=== PATIENT | female | born 2000 | race Caucasian/White ===

== ENCOUNTER 2025-02-27 17:25 | Inpatient (IN) | payer OTHER ==
[~2025-02-27] VITALS: Ht 162.6 cm; Wt 77.3 kg
[2025-02-27 18:17] LABS: PLATELET COUNT (AUTO) 321 K/uL (150-450); RED BLOOD CELL COUNT(AUTO) 3.88 MIL/uL (4.00-5.20); RED CELL DISTRIBUTION WIDTH 14.4 % (11.5-14.5); WHITE BLOOD COUNT (AUTO) 7.2 K/uL (4.5-11.0)
[2025-02-27 18:25] LABS: CALCIUM, TOTAL 9.2 mg/dL (8.8-10.5); CREATININE 0.56 mg/dL (0.60-1.30); GLOMERULAR FILTR. RATE CALC > 60 mL/min (>60); GLUCOSE,RANDOM 108 mg/dL (70-110); SODIUM SERUM 141 mmol/L (136-145); UREA NITROGEN, BLOOD 6 mg/dL (7-18)
[2025-02-27 22:25] VITALS: BP 99/59; PULSE 69; RESP 18; TEMP 98.2; O2SAT 99
[2025-02-27] MEDS ORDERED: LORazepam 2 MG/ML VIAL IVP PRN (22:45)
[2025-02-27] MEDS ORDERED: LOPERAMIDE HCL 2 MG CAPSULE PO PRN (22:45)
[2025-02-27] MEDS ORDERED: BISACODYL 10 MG RECTAL RECTAL SUPPOSITORY PR PRN (22:45)
[2025-02-27] MEDS ORDERED: ACETAMINOPHEN 325 MG TABLET PO PRN (22:45)
[2025-02-27] MEDS ORDERED: DICYCLOMINE HCL 10 MG CAPSULE PO PRN (22:45)
[2025-02-27] MEDS ORDERED: ONDANSETRON HCL 4 MG/2 ML VIAL IVP PRN (22:45)
[2025-02-27] MEDS ORDERED: MAGNESIUM HYDROXIDE SUSPENSION 30 ML UDCUP PO PRN (22:45)
[2025-02-27] MEDS: SODIUM CHLORIDE 0.9% 1,000 ML IV ONE (22:45)
[2025-02-27] MEDS ORDERED: METOCLOPRAMIDE HCL 5 MG/ML 2 ML VIAL IVP PRN (22:45)
[2025-02-27] MEDS: ZOLPIDEM TARTRATE 5 MG TABLET PO PRN (23:32)
[2025-02-27] MEDS: HEPARIN SODIUM,PORCINE 5,000 UNITS/ML VIAL SQ SCH (23:33)
[2025-02-28 05:08] VITALS: BP 117/87; PULSE 73; RESP 18; TEMP 98.4; O2SAT 99
[2025-02-28 06:50] LABS: PLATELET COUNT (AUTO) 304 K/uL (150-450); RED BLOOD CELL COUNT(AUTO) 3.78 MIL/uL (4.00-5.20); RED CELL DISTRIBUTION WIDTH 14.4 % (11.5-14.5); WHITE BLOOD COUNT (AUTO) 6.1 K/uL (4.5-11.0)
[2025-02-28 06:52] LABS: APPEARANCE,URINE CLEAR (CLEAR); GLUCOSE, URINE (UA) NEGATIVE (NEGATIVE); LEUKOCYTE ESTERASE ,URINE NEGATIVE (NEGATIVE); NITRATE,URINE NEGATIVE (NEGATIVE); OCCULT BLOOD,URINE NEGATIVE (NEGATIVE); PH,URINE DRUG SCREEN 7.0 (5.0-8.0); SPECIFIC GRAVITIY, URINE 1.023 (1.003-1.030)
[2025-02-28 06:54] LABS: ALCOHOL, URINE DRUG SCREEN NEGATIVE (NEGATIVE); AMPHET/METH SCREEN,URINE NEGATIVE (NEGATIVE); BARBITURATE SCREEN, URINE NEGATIVE (NEGATIVE); CANNABINOID SCREEN,URINE NEGATIVE (NEGATIVE); COCAINE SCREEN,URINE NEGATIVE (NEGATIVE); METHADONE SCREEN, URINE NEGATIVE (NEGATIVE)
[2025-02-28 07:03] LABS: CALCIUM, TOTAL 8.8 mg/dL (8.8-10.5); CREATININE 0.65 mg/dL (0.60-1.30); GLOMERULAR FILTR. RATE CALC > 60 mL/min (>60); GLUCOSE,RANDOM 123 mg/dL (70-110); SODIUM SERUM 139 mmol/L (136-145); UREA NITROGEN, BLOOD 10 mg/dL (7-18)
[2025-02-28 07:57] VITALS: BP 106/61; PULSE 69; RESP 18; TEMP 98.6; O2SAT 99
[2025-02-28] MEDS: PANTOPRAZOLE SODIUM 40 MG DR TABLET PO SCH (09:00)
[2025-02-28] MEDS: DOCUSATE SODIUM 100 MG CAPSULE PO SCH (09:00)
[2025-02-28 15:50] VITALS: BP 113/55; PULSE 57; RESP 18; TEMP 98.2; O2SAT 98
[2025-02-28 20:09] VITALS: BP 117/57; PULSE 82; RESP 18; TEMP 98.5; O2SAT 99
[2025-02-28] MEDS: TEMAZEPAM 15 MG CAPSULE PO SCH (21:35)
[2025-03-01 05:17] VITALS: BP 107/56; PULSE 65; RESP 18; TEMP 99; O2SAT 97
[2025-03-01 07:30] VITALS: BP 112/68; PULSE 59; RESP 19; TEMP 98.1; O2SAT 99
== END 2025-03-01 13:03 | disposition left against medical advice (07) | DRG 894 ==
LOC: EMS 17:26 → EDH 20:55 → 6S 22:14
PROVIDERS: ADMIT Internal Medicine; ATTEND Internal Medicine
DX: F11.93 Opioid use, unspecified with withdrawal (principal); F41.9 Anxiety disorder, unspecified; F32.A Depression, unspecified
CPT/HCPCS: 80048; 80307; 81003; 84703; 85025; 99285; J1644